=== PATIENT | female | born 1995 | race Caucasian/White ===

== ENCOUNTER 2017-05-02 15:18 | Emergency (ER) | payer MEDICAID ==
[2015-12-11 16:37] VITALS: BMI 28.9
[~2017-05-02 15:18] MED LIST: COLACE100 MG PO; DERMOPLAST TOPICAL; EPIFOAM10 GM TOPICAL; IBUPROFEN600 MG PO; KEFLEX500 MG PO; MILK OF MAGNESI30 ML PO; PERCOCET 10/3251 TA1 PO; TUCKS TOPICAL
[2017-05-02 16:14] LABS: APPEARANCE CLEAR (CLEAR); BILIRUBIN NEGATIVE (NEGATIVE); COLOR YELLOW (YELLOW); GLUCOSE NEGATIVE (NEGATIVE); KETONE NEGATIVE (NEGATIVE); NITRITE NEGATIVE (NEGATIVE); PROTEIN NEGATIVE (NEGATIVE); SPECIFIC GRAVITY 1.015 (1.005-1.020); UROBILINOGEN NORMAL (NORMAL)
[2017-05-02 16:18] LABS: BASOPHILS 0.3 % (0-2); EOSINOPHILS 1.9 % (0-7); HEMATOCRIT 32.6 % (36.0-48.0); HEMOGLOBIN 10.7 g/dL (12-16); IMMATURE GRANULOCYTES 0.2 % (0-5); LYMPHOCYTES 24.4 % (15-50); MCH 25.3 pg (26.0-34.0); MCHC 32.8 g/dL (31.0-37.0); MCV 77.1 fL (80.0-100.0); MEAN PLATELET VOLUME 10.2 fL (7.4-10.4); MONOCYTES 5.3 % (2-11); NEUTROPHILS 67.9 % (40-80); RBC 4.23 10x6/uL (4.00-5.40); RDW 16.8 % (11.5-14.5)
[2017-05-02 16:21] LABS: PLATELET COUNT 269 10x3/uL (130-400)
[2017-05-02 16:23] LABS: HCG SERUM POSITIVE (NEGATIVE)
== END 2017-05-02 17:30 | disposition home or self-care (01) ==
LOC: D.ER 15:18
PROVIDERS: Emergency Medicine
DX: E86.0 Dehydration (principal); R11.10 Vomiting, unspecified; F17.200 Nicotine dependence, unspecified, uncomplicated

== ENCOUNTER 2017-06-09 11:55 | Emergency (ER) | payer MEDICAID ==
[2015-12-11 16:37] VITALS: BMI 28.9
== END 2017-06-09 13:10 | disposition home or self-care (01) ==
LOC: D.ER 11:55
DX: J06.9 Acute upper respiratory infection, unspecified (principal); J01.90 Acute sinusitis, unspecified; J20.9 Acute bronchitis, unspecified; F17.200 Nicotine dependence, unspecified, uncomplicated

== ENCOUNTER 2017-06-22 19:18 | Emergency (ER) | payer MEDICAID ==
[2015-12-11 16:37] VITALS: BMI 28.9
== END 2017-06-22 22:17 | disposition home or self-care (01) ==
LOC: D.ER 19:18
DX: R05 Cough (principal)

== ENCOUNTER 2018-02-10 13:26 | Emergency (ER) | payer MEDICAID ==
[~2018-02-10] VITALS: Ht 167.6 cm; Wt 55.5 kg
[2018-02-10 13:29] VITALS: Ht 167.6 cm; Wt 55.5 kg
[2018-02-10] MEDS ORDERED: MEDROL DOSE PACK4 MG PO (16:37)
[2018-02-10] MEDS ORDERED: AMOXICILLIN875 MG PO (16:37)
[2018-02-10 16:43] VITALS: BP 105/88
== END 2018-02-10 16:44 | disposition home or self-care (01) ==
LOC: D.ER 13:26
DX: J02.9 Acute pharyngitis, unspecified (principal); F17.200 Nicotine dependence, unspecified, uncomplicated

== ENCOUNTER 2019-03-24 09:11 | Emergency (ER) | payer OTHER ==
[~2019-03-24] VITALS: Ht 165.1 cm; Wt 54.5 kg
[~2019-03-24 09:11] MED LIST changes: +AMOXICILLIN875 MG PO; +MEDROL DOSE PACK4 MG PO
[2019-03-24 09:19] VITALS: Ht 165.1 cm; Wt 54.5 kg
[2019-03-24 09:48] LABS: APPEARANCE CLEAR (CLEAR); BILIRUBIN NEGATIVE (NEGATIVE); COLOR YELLOW (YELLOW); GLUCOSE NEGATIVE (NEGATIVE); KETONE NEGATIVE (NEGATIVE); NITRITE NEGATIVE (NEGATIVE); PROTEIN 1+ mg/dL (NEGATIVE); UROBILINOGEN NORMAL (NORMAL)
[2019-03-24 09:52] LABS: BACTERIA FEW /hpf (NEGATIVE); MUCUS >1+ /lpf (NONE SEEN); RED CELLS - URINE 0-5 /hpf (0-5)
[2019-03-24 09:53] LABS: EPITHELIAL CELLS 0-5 /hpf (0-5); HCG URINE NEGATIVE (NEGATIVE)
[2019-03-24 09:54] LABS: BASOPHILS 0.3 % (0-2); EOSINOPHILS 0.9 % (0-7); HEMATOCRIT 38.9 % (36.0-48.0); HEMOGLOBIN 12.4 g/dL (12-16); IMMATURE GRANULOCYTES 0.2 % (0-5); LYMPHOCYTES 14.6 % (15-50); MCHC 31.9 g/dL (31.0-37.0); MCV 81.6 fL (80.0-100.0); PLATELET COUNT 304 10x3/uL (130-400); RBC 4.77 10x6/uL (4.00-5.40); RDW 14.8 % (11.5-14.5); WBC 11.7 10x3/uL (4.8-10.8)
[2019-03-24 10:07] LABS: CALC OSMOLALITY 283 mosm/kg (275-300); CALCIUM 9.2 mg/dL (8.5-10.1); CARBON DIOXIDE 26.5 mmol/L (21.0-32.0); CHLORIDE - SERUM 106 mmol/L (98-107); CREATININE - SERUM 0.8 mg/dL (0.6-1.3); GLUCOSE 91 mg/dL (74-106); SODIUM 143 mmol/L (136-145); UREA NITROGEN 11 mg/dL (7-18); eGFR NON AFRICAN AMERICAN > 90 mL/min (90-120)
[2019-03-24 10:15] LABS: ALBUMIN 4.3 g/dL (3.4-5.0); ALKALINE PHOSPHATASE 89 U/L (46-116); ALT (SGPT) 23 U/L (10-68); AMYLASE - SERUM 49 U/L (25-115); BILIRUBIN - TOTAL 0.81 mg/dL (0.2-1.3); LIPASE 66 U/L (73-393); PROTEIN - SERUM 7.9 g/dL (6.4-8.2)
[2019-03-24] MEDS ORDERED: MACROBID100 MG PO (10:27)
[2019-03-24] MEDS ORDERED: KEFLEX500 MG PO (10:27)
[2019-03-24 10:35] VITALS: BP 120/77
== END 2019-03-24 10:44 | disposition home or self-care (01) ==
LOC: D.ER 09:11
PROVIDERS: Emergency Medicine
DX: N39.0 Urinary tract infection, site not specified (principal)